=== PATIENT | male | born 1945 | race Hispanic/Latino ===

== ENCOUNTER 2024-04-11 06:28 | Day surgery (SDC) | payer OTHER ==
[~2024-04-11] VITALS: Ht 182.9 cm; Wt 86.2 kg
[2024-04-11] VITALS (12 sets, daily range): BP systolic 89–131; BP diastolic 38–58; PULSE 70–79; RESP 15–16; TEMP 96.8–97.7
[~2024-04-11 06:28] MED LIST: 0.9%NACL 1000ML 0 ML IV ONE
[2024-04-11] MEDS ORDERED: TERA2CAP4 PO (08:18)
[2024-04-11] MEDS ORDERED: NIAC1000 PO (08:18)
[2024-04-11] MEDS ORDERED: FISH1CAP27 PO (08:18)
[2024-04-11] MEDS ORDERED: GABA-529 PO (08:18)
[2024-04-11] MEDS ORDERED: INSU3INS3 SQ (08:18)
[2024-04-11] MEDS ORDERED: AURYXIA PO (08:18)
[2024-04-11] MEDS ORDERED: MIDO10TA3 PO (08:18)
[2024-04-11] MEDS ORDERED: MELO-106 PO (08:18)
[2024-04-11] MEDS ORDERED: ROSU10TA72 PO (08:18)
[2024-04-11] MEDS ORDERED: CARV3.12 PO (08:18)
[2024-04-11] MEDS ORDERED: ALLO100T PO (08:18)
[2024-04-11] MEDS ORDERED: LOSA50TA64 PO (08:18)
[2024-04-11] MEDS ORDERED: B&C/1TAB3 PO (08:18)
[2024-04-11] MEDS: 0.9% NACL 500ML IV.SOLN 500 ML IV ONE (08:49)
[2024-04-11] MEDS ORDERED: proPOFol 10 MG/ML 20ML VIAL IV ONE (09:29)
[2024-04-11] MEDS: levoFLOXacin 500 MG/D5W 100 ML 100 ML ONE (09:42)
== END 2024-04-11 11:15 | disposition home or self-care (01) ==
LOC: ENDO 06:28 → DAH 06:28 → ENDO 11:15
PROVIDERS: ATTEND Internal Medicine Gastroenterology
DX: R93.5 Abnormal findings on diagnostic imaging of other abdominal regions, including retroperitoneum (principal); K86.2 Cyst of pancreas; K56.609 Unspecified intestinal obstruction, unspecified as to partial versus complete obstruction; I12.0 Hypertensive chronic kidney disease with stage 5 chronic kidney disease or end stage renal disease; E11.22 Type 2 diabetes mellitus with diabetic chronic kidney disease; E78.5 Hyperlipidemia, unspecified; N18.6 End stage renal disease; M10.9 Gout, unspecified; R79.89 Other specified abnormal findings of blood chemistry; Z79.01 Long term (current) use of anticoagulants; Z79.899 Other long term (current) drug therapy
CPT/HCPCS: 43242; 82150; 82948 ×2; 36415; 88108; 88305; 43248; 82378; J7040; J1956; J2704; A4620; A4215 ×3; A4223; A4222; A4221; A4663; J7030; A4606; 43238; J3490